=== PATIENT | male | born 1985 | race Caucasian/White ===

== ENCOUNTER 2018-06-17 12:07 | Emergency (ER) | payer MEDICAID ==
[~2018-06-17] VITALS: Ht 175.3 cm; Wt 89.0 kg
[2018-06-17] MEDS: ALPRAZOLAM 0.25 MG TABLET PO ONE (16:46)
[2018-06-17 18:34] VITALS: BP 116/81
== END 2018-06-17 18:37 | disposition home or self-care (01) ==
LOC: ER 12:07
DX: R07.9 Chest pain, unspecified (principal); K02.9 Dental caries, unspecified; F12.10 Cannabis abuse, uncomplicated; Z87.891 Personal history of nicotine dependence; Z98.890 Other specified postprocedural states
CPT/HCPCS: 36415; 84484; 99284; Z7610

== ENCOUNTER 2020-10-04 19:18 | Emergency (ER) | payer MEDICAID, OTHER ==
[~2020-10-04] VITALS: Ht 172.7 cm; Wt 93.0 kg
[2020-10-04 19:41] VITALS: BP 126/82
[2020-10-04] MEDS ORDERED: CEPH500T MT (21:29)
[2020-10-04] MEDS ORDERED: SULF1TAB48 MT (21:29)
[2020-10-04] MEDS ORDERED: CEPHALEXIN 250MG CAPSULE PO ONE (21:30)
[2020-10-04] MEDS ORDERED: SULFAMETHOXAZOLE/TRIMETHOPRIM 800/160MG TABLET PO ONE (21:30)
[2020-10-04] MEDS ORDERED: IBUPROFEN 800MG TABLET PO ONE (21:30)
== END 2020-10-04 22:28 | disposition home or self-care (01) ==
LOC: ER 19:18
DX: L03.032 Cellulitis of left toe (principal); I10 Essential (primary) hypertension; F12.10 Cannabis abuse, uncomplicated
CPT/HCPCS: 99281